=== PATIENT | female | born 1965 | race Caucasian/White ===

== ENCOUNTER → 2020-01-12 | Outpatient (CLI) | payer OTHER, SELFPAY ==
[2020-01-12 16:27] VITALS: BMI 30.4
[2020-01-12 22:01] LABS: Free T3 4.3 pg/mL (2.18-3.98); Thyroid Stim Hormone (TSH) 6.09 uIU/mL (0.358-3.74)
== END | disposition home or self-care (01) ==
PROVIDERS: Referring Provider Nurse Practitioner; Visit Provider Nurse Practitioner
DX: R30.0 Dysuria (principal); R35.0 Frequency of micturition; E03.9 Hypothyroidism, unspecified
CPT/HCPCS: 84443; 84481; 87086; 87088

== ENCOUNTER → 2020-08-26 | Outpatient (CLI) | payer BC, SELFPAY ==
[2020-08-26 18:20] VITALS: BMI 31.5
== END | disposition home or self-care (01) ==
PROVIDERS: Referring Provider Nurse Practitioner; Visit Provider Nurse Practitioner
DX: N39.0 Urinary tract infection, site not specified (principal)
CPT/HCPCS: 87086; 87088; 87186

== ENCOUNTER → 2020-09-16 | Outpatient (CLI) | payer BC, SELFPAY ==
[2020-09-16 22:25] LABS: Free T3 2.7 pg/mL (2.18-3.98); T4 Free Direct 0.92 ng/dL (0.76-1.46); Thyroid Stim Hormone (TSH) 0.19 uIU/mL (0.358-3.74)
== END | disposition home or self-care (01) ==
PROVIDERS: Referring Provider Nurse Practitioner; Visit Provider Nurse Practitioner
DX: E03.9 Hypothyroidism, unspecified (principal)
CPT/HCPCS: 84439; 84443; 84481

== ENCOUNTER → 2020-12-16 | Outpatient (CLI) | payer BC, SELFPAY | END | disposition home or self-care (01) | PROVIDERS: Visit Provider Nurse Practitioner | DX: N30.01 Acute cystitis with hematuria (principal) | CPT/HCPCS: 87077; 87086; 87088; 87186 ==

== ENCOUNTER → 2022-05-02 | Outpatient (CLI) | payer BC, SELFPAY ==
[2022-05-02 22:17] LABS: T4 Free Direct 0.55 ng/dL (0.76-1.46)
[2022-05-02 22:31] LABS: Vitamin B12 491 pg/mL (211-911); Vitamin D,25 Hydroxy 22.6 ng/mL
[2022-05-09 11:29] LABS: Vitamin A, Retinol 56.6 ug/dL (20.1-62.0)
== END | disposition home or self-care (01) ==
PROVIDERS: Visit Provider Nurse Practitioner
DX: E03.9 Hypothyroidism, unspecified (principal); E50.9 Vitamin A deficiency, unspecified; E53.9 Vitamin B deficiency, unspecified; E55.9 Vitamin D deficiency, unspecified
CPT/HCPCS: 82306; 82607; 84439; 84443; 84590

== ENCOUNTER → 2022-06-15 | Outpatient (CLI) | payer BC, SELFPAY ==
[2022-06-15 22:46] LABS: T4 Free Direct 1.05 ng/dL (0.76-1.46); Thyroid Stim Hormone (TSH) 0.15 uIU/mL (0.358-3.74)
[2022-06-19 22:10] LABS: Vitamin D 1,25-Dihydroxy 55.5 pg/mL (24.8-81.5)
== END | disposition home or self-care (01) ==
PROVIDERS: Visit Provider Nurse Practitioner
DX: E55.9 Vitamin D deficiency, unspecified (principal); E03.9 Hypothyroidism, unspecified; R53.83 Other fatigue
CPT/HCPCS: 82652; 83735; 84439; 84443; 84481